=== PATIENT | female | born 1980 | race Caucasian/White ===

== ENCOUNTER 2025-03-15 18:33 | Inpatient (IN) | payer BC ==
[~2025-03-15 18:33] MED LIST: Iopamidol 300 61% 100 ML VIAL FS ONE
[2025-03-15 19:15] LABS: #Basophils 0.03 10x3/uL (0.0-0.2); #Eosinophils Less than 0.03 10x3/uL (0.0-0.5); #Monocytes 0.35 10x3/uL (0.0-1.1); #Neutrophils 5.76 10x3/uL (1.5-8.4); %Basophils 0.4 % (0.0-2.0); %Eosinophils 0.3 % (0.0-6.0); %Lymphocytes 16.6 % (18.0-47.0); %Monocytes 4.7 % (0.0-10.0); %Neutrophils 77.9 % (40.0-75.0); Hematocrit 37.8 % (34.9-44.5); Hemoglobin 12.8 g/dL (12.0-15.5); Mean Corpuscular Hemoglobin 28.9 pg (27.0-33.0); Mean Corpuscular Volume 85.3 fL (81.6-98.3); Platelet Count 249 10x3/uL (150-450); Red Blood Cell (RBC) Count 4.43 10x6/uL (3.90-5.03); White Blood Cell (WBC) Count 7.40 10x3/uL (3.5-10.5)
[2025-03-15] MEDS ORDERED: Ondansetron PF 4 MG/2 ML Vial ONE (19:24)
[2025-03-15] MEDS ORDERED: Ketorolac Tromethamine 30 MG (1 mL) VIAL ONE (19:24)
[2025-03-15 19:35] LABS: BHCG - Serum Negative (NEGATIVE); Pregs Control Background? CLEAR/WHITE (CLR/WHITE); Pregs Control Bar Appear? YES (CONTROL BAR)
[2025-03-15 19:42] LABS: ALT (SGPT) 21 U/L (Less than 34); AST (SGOT) 43 U/L (11-34); Albumin 4.4 g/dL (3.1-4.5); Alkaline Phosphatase 71 U/L (40-110); Anion Gap 15 mmol/L (10-20); BUN (Urea Nitrogen) 11 mg/dL (7.0-18.7); Bilirubin, Total 0.8 mg/dL (0.3-1.2); Calc. Creatinine Clearance 0 mL/min (70-130); Calcium 9.1 mg/dL (7.8-10.44); Carbon Dioxide 23 mmol/L (22-29); Chloride 107 mmol/L (98-107); Globulin 3.2 g/dL (2.4-3.5); Glucose 102 mg/dL (70-105); Lipase 37 U/L (8-78); Potassium 4.0 mmol/L (3.5-5.1); Sodium 141 mmol/L (136-145)
[2025-03-15 20:10] LABS: Glucose, Urine (Dipstick) Normal (Negative); Leukocyte 100 (Negative); Protein, Urine (Dipstick) 30 mg/dl (Neg-Trace); Specific Gravity, Urine 1.020 (1.005-1.030)
[2025-03-15 20:21] LABS: CAUTI Indications for Culture Pelvic or flank pain; WBC/HPF 21-50 HPF (0-3)
[2025-03-15 20:22] LABS: Bacteria/HPF 2+ HPF (None Seen); Mucous/LPF 2+ LPF (<2+)
[2025-03-15 20:24] LABS: Urine Culture Reflex Yes Yes
[2025-03-15] MEDS ORDERED: cefTRIAXone (ROCEPHIN) 1 GM VIAL ONE (20:38)
[2025-03-15] MEDS ORDERED: Acetaminophen 325 MG TAB PO PRN (23:23)
[2025-03-15] MEDS ORDERED: Ondansetron PF 4 MG/2 ML Vial IVP PRN (23:23)
[2025-03-16 01:19] VITALS: BMI 22.8
[2025-03-16 04:00] LABS: #Basophils Less than 0.03 10x3/uL (0.0-0.2); #Eosinophils 0.07 10x3/uL (0.0-0.5); #Monocytes 0.46 10x3/uL (0.0-1.1); #Neutrophils 4.79 10x3/uL (1.5-8.4); %Basophils 0.3 % (0.0-2.0); %Eosinophils 1.0 % (0.0-6.0); %Lymphocytes 19.9 % (18.0-47.0); %Monocytes 6.9 % (0.0-10.0); %Neutrophils 71.6 % (40.0-75.0); Hematocrit 34.1 % (34.9-44.5); Hemoglobin 11.6 g/dL (12.0-15.5); Mean Corpuscular Hemoglobin 29.2 pg (27.0-33.0); Mean Corpuscular Volume 85.9 fL (81.6-98.3); Platelet Count 190 10x3/uL (150-450); Red Blood Cell (RBC) Count 3.97 10x6/uL (3.90-5.03); White Blood Cell (WBC) Count 6.69 10x3/uL (3.5-10.5)
[2025-03-16 04:17] LABS: ALT (SGPT) 375 U/L (Less than 34); AST (SGOT) 939 U/L (11-34); Albumin 3.5 g/dL (3.1-4.5); Alkaline Phosphatase 122 U/L (40-110); Anion Gap 11 mmol/L (10-20); BUN (Urea Nitrogen) 9 mg/dL (7.0-18.7); Bilirubin, Total 1.2 mg/dL (0.3-1.2); Calc. Creatinine Clearance 115 mL/min (70-130); Calcium 8.2 mg/dL (7.8-10.44); Carbon Dioxide 22 mmol/L (22-29); Chloride 109 mmol/L (98-107); Globulin 2.6 g/dL (2.4-3.5); Glucose 93 mg/dL (70-105); Potassium 3.4 mmol/L (3.5-5.1); Sodium 139 mmol/L (136-145)
[2025-03-16 06:16] LABS: Magnesium 2.0 mg/dL (1.6-2.6)
[2025-03-16 07:37] LABS: INR-International Normal Ratio 1.0; PTT 24.7 sec (22.0-33.0); Prothrombin Time 11.4 sec (9.5-12.1)
[2025-03-16 07:39] LABS: Acetaminophen Less than 10 mcg/mL (Less than 10)
[2025-03-16 07:58] LABS: Hep B Surf Ag Non-Reactive S/CO (NonReactive)
[2025-03-16] MEDS: Potassium Chloride 20 MEQ in Premix 1 BAG IVPB SCH ×2 (08:18→14:27)
[2025-03-16] MEDS: Famotidine/PF 20 mg/2ml Vial SLOW IVP SCH (08:18)
[2025-03-16] MEDS: Famotidine 20 MG TAB PO SCH (08:18)
[2025-03-16 09:19] LABS: ALT (SGPT) 421 U/L (Less than 34); AST (SGOT) 730 U/L (11-34); Albumin 3.4 g/dL (3.1-4.5); Alkaline Phosphatase 117 U/L (40-110); Bilirubin, Direct 0.5 mg/dL (0.1-0.3); Bilirubin, Total 1.2 mg/dL (0.3-1.2)
[2025-03-16 12:18] LABS: Hep A IgM AB NONREACTIVE (NonReactive); Hep A IgM S/CO 0.13 S/CO (0-0.79); Hep B Core IgM Index 0.07 S/CO (0-0.79); Hep C IgG Ab NONREACTIVE S/CO (NonReactive); Hep C Index 0.08 S/CO (0-0.79)
[2025-03-16] MEDS: cefTRIAXone\\ROCEPHIN 1 GM in Sodium Chloride 0.9% 100 ML IVPB SCH (21:29)
[2025-03-17 03:44] LABS: #Basophils Less than 0.03 10x3/uL (0.0-0.2); #Eosinophils 0.15 10x3/uL (0.0-0.5); #Monocytes 0.20 10x3/uL (0.0-1.1); #Neutrophils 1.38 10x3/uL (1.5-8.4); %Basophils 0.6 % (0.0-2.0); %Eosinophils 4.5 % (0.0-6.0); %Lymphocytes 46.7 % (18.0-47.0); %Monocytes 6.1 % (0.0-10.0); %Neutrophils 41.8 % (40.0-75.0); Hematocrit 32.2 % (34.9-44.5); Hemoglobin 10.6 g/dL (12.0-15.5); Mean Corpuscular Hemoglobin 28.4 pg (27.0-33.0); Mean Corpuscular Volume 86.3 fL (81.6-98.3); Platelet Count 165 10x3/uL (150-450); Red Blood Cell (RBC) Count 3.73 10x6/uL (3.90-5.03); White Blood Cell (WBC) Count 3.30 10x3/uL (3.5-10.5)
[2025-03-17 03:55] LABS: INR-International Normal Ratio 1.1; Prothrombin Time 11.6 sec (9.5-12.1)
[2025-03-17 04:02] LABS: ALT (SGPT) 277 U/L (Less than 34); AST (SGOT) 272 U/L (11-34); Albumin 3.1 g/dL (3.1-4.5); Alkaline Phosphatase 111 U/L (40-110); Anion Gap 9 mmol/L (10-20); BUN (Urea Nitrogen) 9 mg/dL (7.0-18.7); Bilirubin, Total 0.4 mg/dL (0.3-1.2); Calc. Creatinine Clearance 127 mL/min (70-130); Calcium 7.9 mg/dL (7.8-10.44); Carbon Dioxide 23 mmol/L (22-29); Chloride 110 mmol/L (98-107); Globulin 2.4 g/dL (2.4-3.5); Glucose 82 mg/dL (70-105); Potassium 3.9 mmol/L (3.5-5.1); Sodium 138 mmol/L (136-145)
[2025-03-17 12:29] VITALS: BP 114/68; TEMP 98.3
[2025-03-20 14:14] LABS: ANA Symphony (Qualitative) POSITIVE (Negative); ANA Symphony (Quantitative) 9.9 Ratio (< 0.7 Negative); CENP IgG Antibody 153.0 EliAU/mL (<7 Negative); EliA Vaculitis New Method **** NEW METHOD ****; Mitochondrial Ab 1.3 U/mL (<4 Negative); RNP70 IgG Antibody 1.0 EliAU/mL (<7 Negative); SSA/Ro IgG Antibody Less than 0.4 EliAU/mL (<7 Negative); SSB/La IgG Antibody Less than 0.4 EliAU/mL (<7 Negative); Scleroderma-70 IgG Antibody 2.3 EliAU/mL (<7 Negative); U1RNP IgG Antibody 2.1 EliAU/mL (<5 Negative); dsDNA IgG Antibody 0.9 IU/mL (<10 Negative)
[2025-03-20 15:00] LABS: Smith D IgG Antibody Less than 0.7 EliAU/mL (<7 Negative)
== END 2025-03-17 14:54 | disposition home or self-care (01) | DRG 391 ==
LOC: CSHERS 18:33 → CSHTELE 23:23 → OBSVTOIN 03-17 12:49
PROVIDERS: ADMIT Internal Medicine; ATTEND Internal Medicine
DX: K52.89 Other specified noninfective gastroenteritis and colitis (principal); K56.2 Volvulus; N39.0 Urinary tract infection, site not specified; R10.9 Unspecified abdominal pain; E66.9 Obesity, unspecified; E87.6 Hypokalemia; Z98.84 Bariatric surgery status; Z90.49 Acquired absence of other specified parts of digestive tract; Z98.890 Other specified postprocedural states; Z68.22 Body mass index [BMI] 22.0-22.9, adult
CPT/HCPCS: 36415; 74177; 76705; 80053; 80074; 80143; 81001; 83516; 83605; 83690; 83735; 84100; 84703; 85025; 85610; 85730; 86015; 86038; 86225; 86235; 87040; 87077; 87086; 87149; 87186; 96361; 96374; 96375; 96376; 80307; G0378; J0696; J1308; J1885; J2270; J2405; J3480; J7030; J7120; Q9967